=== PATIENT | male | born 1960 | race Two or more races ===

== ENCOUNTER → 2024-12-08 | Outpatient (CLI) | payer MEDICARE, MEDICAID, SELFPAY ==
--- NOTE | 2024-12-08 13:57 | XR_ITS ---
Examination: Knee, left , 3 views Technique: Knee AP, lateral, oblique 3 views Date and time of exam: December 08, 2024 1416 hours INDICATIONS: Worsening knee pain over the last 1 year FINDINGS: Moderate to advanced narrowing medial and patellofemoral joints No fracture or dislocation Moderate knee effusion Prominent osteopenia IMPRESSION: Moderate to advanced narrowing medial patellofemoral joints
== END | disposition home or self-care (01) ==
PROVIDERS: PCP Family Medicine; Referring Provider Family Medicine; Visit Provider Family Medicine
DX: M25.862 Other specified joint disorders, left knee (principal)
CPT/HCPCS: 73562

== ENCOUNTER 2025-02-10 07:56 | Outpatient (AMB) | payer MEDICARE, MEDICAID, SELFPAY ==
--- NOTE | 2025-02-10 08:05 | PD.ORTHCLVIS ---
Vital signs 02/10/25 08:06 Height 1.73 m Height Method Stated Weight 130.323 kg Weight Measurement Method Standing Scale BMI 43.7 BP 137/81 H Blood Pressure Source Automatic Cuff Blood Pressure Location Left Upper Arm Position Sitting Respiration 19 Pulse 99 Pulse Source Monitor Temp 96.9 F Temp Source Temporal Artery Scan Pulse Oximetry (%) 94 L Oxygen Delivery Method Room Air Med/Allergies Allergies & Medications Allergies No Known Allergies Allergy (Verified 02/10/25 08:09) Medication Reconciliation Amlodipine Besylate/Benazepril (Amlodipine-Benazepril 10/20 Mg) 1 cap PO DAILY ##0 07/20/09 [History Confirmed 02/10/25] Fa/Mv,Ca,Fe,Min/Lycopene/Lut (Centrum) 1 tab PO DAILY ##0 07/20/09 [History Confirmed 02/10/25] Pantoprazole Sodium 40 mg PO DAILY ##0 07/20/09 [History Confirmed 02/10/25] albuterol sulfate 4 mg tablet,extended release,12 hr 4 mg PO BID ##0 07/20/09 [History Confirmed 02/10/25] flunisolide 25 mcg (0.025 %) nasal spray 25 ml both nostrils ##0 07/20/09 [History Confirmed 02/10/25] Amitriptyline Hcl * (ELAVIL *) 25 mg PO HS #0 tabs 05/08/14 [History Confirmed 02/10/25] Diphenoxylate Hcl/Atrop Sulf * (LOMOTIL *) 1 tab PO TID PRN DIARRHEA #0 tabs 05/08/14 [History Confirmed 02/10/25] Glyburide/Metformin * (GLUCOVANCE 5/500 *) 1 tab PO BIDAC #0 tabs 05/08/14 [History Confirmed 02/10/25] HYDROCODONE BIT/ACETAMINOPHEN (HYDROCODON-ACETAMINOPHN 10-300) 1 tab PO BID ##0 05/08/14 [History Confirmed 02/10/25] Multivitamins With Minerals * (A THRU Z ADVANCED FORMULA *) 1 tab PO QDAY #0 tabs 05/08/14 [History Confirmed 02/10/25] Sulfamethoxazole/Trimethoprim DS * (BACTRIM DS *) 1 tab PO BID #0 tabs 05/08/14 [History Confirmed 02/10/25] Zolpidem Tartrate (Zolpidem 10mg) 10 mg PO HS #0 tabs 05/08/14 [History Confirmed 02/10/25] diclofenac sodium 75 mg tablet,delayed release 75 mg PO TIDWM ##0 05/08/14 [History Confirmed 02/10/25] dutasteride 0.5 mg capsule (Avodart) 0.5 mg PO QDAY #0 caps 05/08/14 [History Confirmed 02/10/25] dutasteride 0.5 mg capsule (Avodart) 0.5 mg PO QDAY #0 caps 05/08/14 [History Confirmed 02/10/25] fexofenadine 180 mg tablet (Giselle Allergy) 180 mg PO QDAY #0 tabs 05/08/14 [History Confirmed 02/10/25] gabapentin 300 mg capsule 300 mg PO TID #0 caps 05/08/14 [History Confirmed 02/10/25] glucosamine sulfate 2KCl 1,000 mg tablet (Glucosamine Relief) 500 mg PO ##0 05/08/14 [History Confirmed 02/10/25] meclizine 25 mg tablet (Antivert) 25 mg PO TID PRN DIZZINESS #0 tabs 05/08/14 [History Confirmed 02/10/25] misoprostol 200 mcg tablet (Cytotec) 200 mcg PO BID #0 tabs 05/08/14 [History Confirmed 02/10/25] montelukast 10 mg tablet (Singulair) 10 mg PO HS #0 tabs 05/08/14 [History Confirmed 02/10/25] morphine 60 mg tablet,extended release (MS Contin) 60 mg PO BID #0 tabs 05/08/14 [History Confirmed 02/10/25] pioglitazone 30 mg tablet (Actos) 30 mg PO QDAY #0 tabs 05/08/14 [History Confirmed 02/10/25] prochlorperazine maleate 10 mg tablet 10 mg PO TID #0 tabs 05/08/14 [History Confirmed 02/10/25] ranitidine HCl 150 mg tablet (Zantac) 150 mg PO QPM #0 tabs 05/08/14 [History Confirmed 02/10/25] tolterodine 2 mg capsule,extended release 24 hr (Detrol LA) 2 mg PO QDAY ##0 06/13/14 [History Confirmed 02/10/25] LIPASE/PROTEASE/AMYLASE (PANCREAZE 10,500 UNIT CHRIS ALVAREZ) 1 cap PO TIDWM Gastrointestinal Issues ##90 05/10/14 [Rx Confirmed 02/10/25] dicyclomine 20 mg tablet 20 mg PO TID #20 tabs 05/29/23 [Rx Confirmed 02/10/25] Exam Exam Patient is in no acute distress and is cooperative with the examination today. Breathing is nonlabored. In no respiratory distress. Bilateral extremities were evaluated and demonstrates sensation intact to light touch. Palpable pedal pulses are present. No significant edema is present. Bilateral hips were examined. The patient has no pain with log roll of the hips. Internal rotation to 30 degrees and external rotation to 30 degrees is painless. Negative FADIR. The left knee was examined. The left knee is in varus alignment. Range of motion from 0-115 degrees. Knee is stable to varus and valgus as well as AP translation with <5mm. Patient has a negative McMurrays. There is no pain with patellofemoral compression and no crepitus noted. The knee is tender to palpation medially. The right knee was also examined. The right knee is in varus alignment. Range of motion from 0-120 degrees. Knee is stable to varus and valgus as well as AP translation with <5mm. Patient has a negative McMurrays. There is no pain with patellofemoral compression and no crepitus noted. The knee is tender to palpation medially. X-rays demonstrate significant joint space narrowing. I have a nonweightbearing view of the left knee. Assessment and Plan Problem List (1) Arthritis of left knee: Status: Acute Plan: Patient is a 64-year-old male with left knee arthritis and morbid obesity on chronic opioids. He is on MS Contin at a very high dose and takes it 5 times a day. I discussed with him that we have several problems. First, his current weight, surgical options are not possible given the high risk of medical complications. We discussed this with him. He is not interested in losing weight. Furthermore, we discussed that he would likely need to wean the opioid medication as he has had a extremely high dose which makes it very difficult to control pain and puts him at high risk for complications during surgery. He also reports that he cannot wean the medication and has no interest in this. I discussed with him the only options are nonoperative treatment. I also discussed the right heel weightbearing x-rays to better evaluate the arthritis. He is not interested in seeing us again. Unfortunately, he is not optimized medically for surgery and has no interest in being optimized. He does not want to wean his pain medication which is an extremely high dose for his back, and has no interest in losing weight. He is welcome to seek another opinion if he would like Office Procedures GNS Level of Care Nursing/Assessment Patient Status: Initial/New Patient Nursing Assessment/Reassesment: Medication Reconciliation, Update PMH in EMR and Vital Signs Coordination of Care: Complex Care and Chronic Disease 1-5, Education Complex Pt/Fam, Consent,records obtained, informed consent, 1 Ins Authorization, Lab and Imaging orders, Results/Orders obtained and Staff clarify orders Special Needs: Language special needs New Patient Charge New Patient Point Assignment: 1124 New Patient Point Charge: DEAN FOR STUDENT AFFAIRS Level 4 ([id number]) MA Intake Visit Data Collection New Patient or Established: New Patient (never been to [facility]) Reason for Visit:: LEFT KNEE PAIN Seen by Clinical Staff ONLY (RN/MA): No Biomedical Manager Required: Yes PCP or OBGYN visit in last 3 months: Yes Hx Now: No Do You Feel Safe at Home: Yes Authorities Contacted: N/A Questionairres Past Medical History Past Medical History Have you ever been diagnosed with any of the following: Cardiology Problems Hypertension: Yes Respiratory Problems Asthma: No Genital/Urinary Problems Renal Disease: No Endocrine Problems Diabetes Mellitus Type 2: Yes (GANUVIA) Blood Problems Sickle Cell Disease: No Psychologic Problems Depression: Yes Subjective Visit Visit for: new patient and knee (LEFT) Immunization / Flu Flu Vaccine in the Last 12 Months: No Flu Vaccine Exclusion Criteria: Refused by Patient History of Present Illness Chief complaint: bl knee pain Date of injury / onset of symptoms: 01/2024 Patient is a 65 yo male on chronic opioids for back pain with a BMI of 0Vitals 44 with left knee pain. He is on MS Contin the chronic opioids for his back. He also has a BMI of 44. We discussed that he cannot lose weight and does not think that he can wean off the medication. Uses a cane. He has tried injections over a year ago Personal History Occupation: RETIRED Pain Pain level (0-10): 6 Pain duration: CONSTANT Pain location: inside (medial) and anterior Pain quality: dull and aching Pain timing: night, increases with activity and stairs Associated signs & symptoms: weakness and stiffness Ambulatory data Ambulatory device: cane Treatments Number of previous injections: 2 Improvement with previous injections: No Improvement with PT: No Improvement with NSAIDS: no Review of Systems Review of Systems: All systems negative unless otherwise noted in HPI.
[2025-02-10 08:06] VITALS: BP 137/81; PULSE 99; RESP 19; TEMP 36.1; O2SAT 94; BMI 43.7
== END 2025-02-10 08:23 | disposition home or self-care (01) ==
LOC: HODSRG 07:56
PROVIDERS: PCP Family Medicine; Referring Provider Family Medicine; Supervising Provider Orthopaedic Surgery Adult Reconstructive Orthopaedic Surgery; Visit Provider Orthopaedic Surgery Adult Reconstructive Orthopaedic Surgery
DX: M17.12 Unilateral primary osteoarthritis, left knee (principal); F32.A Depression, unspecified; E11.9 Type 2 diabetes mellitus without complications; I10 Essential (primary) hypertension; E66.01 Morbid (severe) obesity due to excess calories; Z68.41 Body mass index [BMI] 40.0-44.9, adult
CPT/HCPCS: 99204; G0463

== ENCOUNTER → 2025-03-03 | Outpatient (CLI) | payer MEDICARE, MEDICAID, SELFPAY ==
[2025-03-03 10:03] LABS: Alanine Aminotransferase 17 U/L (10-49); Albumin, Serum 3.8 gm/dL (3.4-4.8); Alkaline Phosphatase 105 U/L (46-116); Anion Gap 7 (7-16); Aspartate Amino Transferase 16 U/L (0-34); BUN/Creatinine Ratio 11 Ratio (12-20); Bilirubin,Direct 0.3 mg/dL (0.0-0.3); Bilirubin,Total 0.7 mg/dL (0.3-1.2); Blood Urea Nitrogen 9 mg/dL (9-23); Calcium 9.1 mg/dL (8.3-10.6); Carbon Dioxide 29.3 mMol/L (20.0-31.0); Cardiac Risk Estimate 3.7 RATIO (4.0-6.7); Chloride 103 mMol/L (98-107); Cholesterol 110 mg/dL (132-200); Creatinine (Component) 0.8 mg/dL (0.6-1.3); Glucose 263 mg/dL (74-106); HDL Cholesterol 30 mg/dL (40-60); LDL Cholesterol,Calculated 55 mg/dL (0-130); Osmolality,Calculated 285 (275-295); Potassium 3.8 mMol/L (3.4-5.1); Sodium 139 mMol/L (136-145); Total Protein 6.8 gm/dL (5.7-8.2); Triglycerides 127 mg/dL (30-150); eGFR > 60 See Note
[2025-03-03 10:07] LABS: Basophils % (Auto) 0 % (0-2.5); Eosinophils # (Auto) 0.2 Thou/mm3 (0.0-0.5); Eosinophils % (Auto) 3 % (0-10); Hematocrit 40.7 % (41.0-53.0); Immature Granulocytes % (Auto) 0 % (0-0); Immature Granulocytes Auto 0.02 Thou/mm3 (0.00-0.00); Lymphocytes # (Auto) 2.7 Thou/mm3 (1.0-4.8); Lymphocytes % (Auto) 36 % (10-50); Mean Corpuscular HGB Conc 31.9 g/dl (31.0-37.0); Mean Corpuscular Hemoglobin 29.9 pg (25.0-35.0); Mean Corpuscular Volume 94 fL (80-100); Monocytes # (Auto) 0.7 Thou/mm3 (0.0-0.8); Monocytes % (Auto) 9 % (0-12); Neutrophils % (Auto) 52 % (37-80); Nucleated Red Blood Cell % 0 /100 WBC (0); Platelet Count 273 Thou/mm3 (140-440); RDW Standard Deviation 46.9 fL (35.1-43.9); Red Blood Count 4.35 Miln/mm3 (4.50-5.90); White Blood Count 7.6 Thou/mm3 (3.8-10.6)
[2025-03-03 10:09] LABS: Glucose Estimated Average 260 mg/dL (80-131); Hemoglobin A1C 10.7 % Hgb (4.8-6.0)
[2025-03-03 10:16] LABS: Creatinine MALB Rnd Ur > 245 mg/dL (30-125); Microalbumin Creat Ratio 8 mg/gCrea (<30); Microalbumin, Random Urine 21 mg/L (0-300)
== END | disposition home or self-care (01) ==
LOC: COPL 08:14
PROVIDERS: PCP Family Medicine; Referring Provider Family Medicine; Visit Provider Family Medicine
DX: E11.9 Type 2 diabetes mellitus without complications (principal); I10 Essential (primary) hypertension
CPT/HCPCS: 36415; 80048; 80061; 80076; 82043; 82570; 83036; 85025

== ENCOUNTER 2025-06-05 21:35 | Emergency (ER) | payer MEDICAID, SELFPAY ==
[2025-06-05 22:12] VITALS: BP 129/79; PULSE 67; RESP 18; TEMP 37.2; O2SAT 96
--- NOTE | 2025-06-05 22:21 | XR_ITS ---
Examination: PA chest single view TECHNIQUE: Upright PA chest single view. Date and time: June 05, 2025 10:32 PM INDICATIONS: Chest pain shortness of breath beginning 3 days ago. FINDINGS: Normal heart size. Lungs are clear. Moderate osteopenia. IMPRESSION: No active disease.
--- NOTE | 2025-06-05 22:21 | EKG_ITS ---
[facility] (Formerly [facility]) Test Date: 2025-06-05 Pat Name: RANDY THOMPSON Department: Room: - Gender: Male Insurance Collector: : 1960 Requested By: Wilber Hill Order Number: [id number] Reading MD: Wilber Hill Measurements Intervals [place] Rate: 69 P: 52 ME: 172 QRS: 37 QRSD: 91 T: 42 QT: 376 QTc: 404 Interpretive Statements SINUS RHYTHM No previous ECG available for comparison /store/S0/[id number].pdf
[2025-06-05] MEDS: ONDANSETRON ODT 4 MG TABRAP PO (22:47)
[2025-06-05 23:00] LABS: Basophils # (Auto) 0.1 Thou/mm3 (0.0-0.2); Basophils % (Auto) 0 % (0-2.5); Eosinophils # (Auto) 0.2 Thou/mm3 (0.0-0.5); Eosinophils % (Auto) 2 % (0-10); Hematocrit 41.9 % (41.0-53.0); Hemoglobin 14.0 g/dL (13.5-16.0); Immature Granulocytes Auto 0.04 Thou/mm3 (0.00-0.00); Lymphocytes # (Auto) 3.7 Thou/mm3 (1.0-4.8); Lymphocytes % (Auto) 32 % (10-50); Mean Corpuscular HGB Conc 33.4 g/dl (31.0-37.0); Mean Corpuscular Hemoglobin 30.3 pg (25.0-35.0); Mean Corpuscular Volume 91 fL (80-100); Monocytes # (Auto) 0.8 Thou/mm3 (0.0-0.8); Monocytes % (Auto) 7 % (0-12); Neutrophils # (Auto) 6.8 Thou/mm3 (1.8-7.7); Neutrophils % (Auto) 59 % (37-80); Nucleated Red Blood Cell # 0.00 Thou/mm3 (0.00-0.00); Nucleated Red Blood Cell % 0 /100 WBC (0); Platelet Count 246 Thou/mm3 (140-440); RDW Standard Deviation 42.8 fL (35.1-43.9); Red Blood Count 4.62 Miln/mm3 (4.50-5.90); White Blood Count 11.5 Thou/mm3 (3.8-10.6)
[2025-06-05] MEDS: FAMOTIDINE 20 MG TABLET 40 MG PO (23:14)
[2025-06-05] MEDS: MG HYD/AL HYD/SIME (Maalox Reg) SUSP 30 ML UDC PO (23:15)
--- NOTE | 2025-06-05 23:23 | EDNOTE_ITS ---
<Statement entered by Mary Ann Villanueva MD - 06/08/25 18:56> As co-signing physician, I was present and available for consult prn. I concur with the plan and care as documented by the midlevel provider. ED Recheck Abnl Lab Rx-RME/HPI General Chief Complaint: General Adult/Misc Complain Stated Complaint: WHOLE BODY CRAMPING X 3 AYS Time Seen by Provider: 06/05/25 22:21 Arrival date/time: 06/05/25 21:35 65M with history of DM, GERD, pancreatitis, and psych presents to ED with 3 days of full body cramping/numbness. There is also some epigastric pain that radiates to throat. Patient states he went to PCP yesterday and was told it was esophagitis or something similar. Limitations: no limitations Related Data Home Medications ?Medication ?Instructions ?Recorded ?Confirmed Amlodipine Besylate/Benazepril 1 cap PO DAILY ##0 /04/0302/10/25 (Amlodipine-Benazepril 10/20 Mg) Fa/Mv,Ca,Fe,Min/Lycopene/Lut 1 tab PO DAILY ##0 02/10/25 (Centrum) Pantoprazole Sodium 40 mg PO DAILY ##0 07/20/09 02/10/25 albuterol sulfate 4 mg 4 mg PO BID ##0 07/20/09 tablet,extended release,12 hr flunisolide 25 mcg (0.025 %) nasal 25 ml both nostrils ##0 07/20/09 02/10/25 spray Amitriptyline Hcl * (ELAVIL *) 25 mg PO HS #0 tabs 02/10/25 Diphenoxylate Hcl/Atrop Sulf * 1 tab PO TID PRN DIARRH EA #0 tabs 05/08/14 02/10/25 (LOMOTIL *) Glyburide/Metformin * (GLUCOVANCE 1 tab PO BIDAC #0 ta bs 05/08/14 02/10/25 5/500 *) HYDROCODONE BIT/ACETAMINOPHEN 1 tab PO BID ##0 4 02/10/25 (HYDROCODON-ACETAMINOPHN 10-300) Multivitamins With Minerals * (A 1 tab PO QDAY #0 tabs 05/08/14 02/10/25 THRU Z ADVANCED FORMULA *) Sulfamethoxazole/Trimethoprim DS * 1 tab PO BID #0 tab s 05/08/14 02/10/25 (BACTRIM DS *) Zolpidem Tartrate (Zolpidem 10mg) 10 mg PO HS #0 tabs 05/08/14 02/10/25 diclofenac sodium 75 mg 75 mg PO TIDWM ##0 05/08/14 02/10/25 tablet,delayed release dutasteride 0.5 mg capsule 0.5 mg PO QDAY #0 caps 04/2602/10/25 (Avodart) dutasteride 0.5 mg capsule 0.5 mg PO QDAY #0 caps 04/2602/10/25 (Avodart) fexofenadine 180 mg tablet 180 mg PO QDAY #0 tabs 04/2602/10/25 (Giselle Allergy) gabapentin 300 mg capsule 300 mg PO TID #0 caps 02/10/25 glucosamine sulfate 2KCl 1,000 mg 500 mg PO ##0 02/10/25 tablet (Glucosamine Relief) meclizine 25 mg tablet (Antivert) 25 mg PO TID PRN DIZ ZINESS #0 tabs 05/08/14 02/10/25 misoprostol 200 mcg tablet 200 mcg PO BID #0 tabs 04/2602/10/25 (Cytotec) montelukast 10 mg tablet 10 mg PO HS #0 tabs 05/08/14 02/10/25 (Singulair) morphine 60 mg tablet,extended 60 mg PO BID #0 tabs 02/10/25 release (MS Contin) pioglitazone 30 mg tablet (Actos) 30 mg PO QDAY #0 tab s 05/08/14 02/10/25 prochlorperazine maleate 10 mg 10 mg PO TID #0 tabs 02/10/25 tablet ranitidine HCl 150 mg tablet 150 mg PO QPM #0 tabs 02/10/25 (Zantac) tolterodine 2 mg capsule,extended 2 mg PO QDAY ##0 02/10/25 release 24 hr (Detrol LA) Previous Rx's ?Medication ?Instructions ?Recorded LIPASE/PROTEASE/AMYLASE (PANCREAZE 1 cap PO TIDWM Patience rointestinal 05/10/14 10,500 UNIT CAP ) Issues ##90 dicyclomine 20 mg tablet 20 mg PO TID #20 tabs Allergies Allergy/AdvReac Type Severity Reaction Status Date / Time No Known Allergies Allergy Verified 06/05/25 21:36 Review of Systems Review of Systems Systems Reviewed: All systems reviewed, normal except as documented Constitutional Constitutional: Reports system reviewed and no additional complaints, except as documented, Denies fever(s) and Denies headache(s) ENT Ears, Nose, Mouth, and Throat: Denies disequilibrium and Denies headache(s) Cardiovascular Cardiovascular: Reports system reviewed and no additional complaints, except as documented, Denies chest pain and Denies dyspnea Respiratory Respiratory: Reports system reviewed and no additional complaints, except as documented, Denies cough and Denies dyspnea Gastrointestinal Gastrointestinal: Reports system reviewed and no additional complaints, except as documented, Reports as per HPI, Reports abdominal pain, Reports nausea and Reports vomiting Musculoskeletal Musculoskeletal: Reports as per HPI, Reports muscle cramps and Reports numbness Integumentary/Breasts Skin/Breast: Reports as per HPI Neurologic Neurologic: Reports system reviewed and no additional complaints, except as documented, Denies confusion, Denies disequilibrium, Denies headache(s) and Reports numbness Psychiatric Psychiatric: Denies confusion Past Medical History Past Medical History CARDIAC: Positive Hypertension; Negative Cardiac Disorders RESPIRATORY: Negative Asthma GENITOURINARY: Negative Renal Disease ENDOCRINE: Positive Diabetes Mellitus Type 2 (GANUVIA) HEMATOLOGIC: Negative Sickle Cell Disease PSYCHO/SOCIAL: Positive Depression Social History SMOKING STATUS: Never smoker ED Exam General Limitations: Present no limitations General appearance: Present alert and in no apparent distress Head Head exam: Present atraumatic Eye Eye exam: Present normal appearance, PERRL and EOMI ENT ENT exam: Present normal exam, normal oropharynx and mucous membranes moist Neck Neck exam: Present normal inspection, full ROM and trachea midline Chest Chest inspection: Present normal inspection and symmetric chest wall rise Respiratory Respiratory exam: Present normal lung sounds bilaterally Cardiovascular Cardiovascular exam: Present regular rate, normal rhythm and normal heart sounds Abdominal Exam Abdominal exam: Present soft and normal bowel sounds Abdominal tenderness: Present epigastrium Extremities Exam Extremities exam: Present normal inspection and full ROM Back Exam Back exam: Present normal inspection and full ROM Neurological Exam Neurological exam: Present alert, oriented X3 and CN II-XII intact Psychiatric Psychiatric exam: Present normal affect and normal mood Skin Skin exam: Present warm, dry, intact and normal color Course Quality Measures none Orders Category Date Time Status EKG (ED ONLY) *Do not use* NOW Care 06/05/25 22:21 Completed EKG (ED Only) Stat Exams 06/05/25 22:21 Draft XR chest 1V portable Stat Exams 06/05/25 22:21 Completed Alcohol, Blood Medical Stat Lab 06/05/25 22:45 Completed CBC Stat Lab 06/05/25 22:45 Completed Comprehensive Metabolic Panel Stat Lab 06/05/25 22:45 Completed Drug Screen,Urine Stat Lab 06/05/25 22:50 Completed Lipase Stat Lab 06/05/25 22:45 Completed Magnesium Stat Lab 06/05/25 22:45 Completed Troponin I Stat Lab 06/05/25 22:45 Completed Urinalysis Stat Lab 06/05/25 22:50 Completed Diazepam [Valium] Med 06/05/25 23:27 Discontinued 5 mg PO X1 ONE Famotidine [Pepcid] Med 06/05/25 22:21 Discontinued 40 mg PO X1 ONE Ondansetron Odt [Zofran Odt] Med 06/05/25 22:21 Discontinued 4 mg PO X1 ONE mg Hyd/Al Hyd/Rusty Susp [Maalox Susp] Med 06/05/25 22:21 Discontinued 30 ml PO X1 ONE Vital Signs Vital signs: Vital Signs Temperature 98.9 F 06/05/25 22:12 Pulse Rate 67 06/05/25 22:12 Respiratory Rate 18 06/05/25 22:12 Blood Pressure 129/79 06/05/25 22:12 Pulse Oximetry (%) 96 06/05/25 22:12 Oxygen Delivery Method Room Air 06/05/25 22:12 O2 at 96% on RA and WNLs Recheck / Abnormal Lab / Rx MDM Narrative MDM Narrative:: 65M with history of DM, GERD, pancreatitis, and psych presents to ED with 3 days of full body cramping/numbness. There is also some epigastric pain that radiates to throat. Patient states he went to PCP yesterday and was told it was esophagitis or something similar. Physical exam reveals minimal epigastric tenderness. Normal lungs and WOB. No obvious cramping. Gait normal. Patient is afebrile, calm, and alert. EKG is NSR. CXR normal. Normal trop. CMP, mag, and CBC unremarkable. GI cocktail relieved ab pain. Patient data External records reviewed:: [facility] previous records Clinical information provided by:: patient Social determinants that could affect healthcare access:: mental health Patient has the following chronic illnesses:: DM, GERD, pancreatitis, and psych How is presenting disease/condition affected by chronic disease/condition?: exacerbated by Evaluation data The following diagnostics were reviewed and interpreted by me:: lab results, radiology exam(s) and EKG tracing(s) Lab and/or radiology exams considered but not ordered:: ordered Interpretation Summary: above Medications / Prescriptions Medications or Prescriptions considered but not ordered:: ordered Medication administrations:: Medication Administration History Discontinued Medications Al Hydrox/Mg Hydrox/Simethicone (Mg Hyd/Al Hyd/Rusty (Maalox Reg) Susp 30 Ml Udc) 30 ml PO X1 ONE Stop: 06/05/25 22:22 Last Admin: 06/05/25 23:15 Dose: 30 ml Documented By: Diazepam (Diazepam 5 Mg Tablet) 5 mg PO X1 ONE Stop: 06/05/25 23:28 Last Admin: 06/05/25 23:44 Dose: 5 mg Documented By: Famotidine (Famotidine 20 Mg Tablet) 40 mg PO X1 ONE Stop: 06/05/25 22:22 Last Admin: 06/05/25 23:14 Dose: 40 mg Documented By: Ondansetron HCl (Ondansetron Odt 4 Mg Tabrap) 4 mg PO X1 ONE; Protocol Stop: 06/05/25 22:22 Last Admin: 06/05/25 22:47 Dose: 4 mg Documented By: above Consultations Consultation(s) initiated? (list below): No Diagnosis Recheck Differential Diagnosis: encounter for medication refill, encounter for wound recheck, encounter for recheck of burn, encounter for removal of sutures, warfarin-induced coagulopathy and other (GERD and paresthesia ) Most likely diagnosis given after review of the tests above:: GERD and paresthesia Admission Indicated Admission indicated?: not indicated Admission Request Was there a request for admission?: No Disposition Plan Disposition Plan: Discharge Discharge Attestation Discharge Attestation: The patient and all family members were given an opportunity to ask questions and understood the discharge instructions. Discharge instructions specifically effects, indications for sooner follow up or return to the emergency department, and the expected course of current diagnosis. Patient condition: Stable Discharge Plan Plan Patient Disposition: HOME (Self Care) Discharge Disposition comment: Stable Prescriptions/Referrals Prescriptions/Med Rec: No Action Amlodipine Besylate/Benazepril (Amlodipine-Benazepril 10/20 Mg) 1 CAP capsule 1 cap PO DAILY Qty: 0 Patient Comments: TAKE ONE TABLET BY MOUTH DAILY flunisolide 25 ML spray,non-aerosol 25 ml both nostrils Qty: 0 Patient Comments: TAKE ONE PRAY IN NARE DAILY albuterol sulfate 4 MG tablet extended release 12 hr 4 mg PO BID Qty: 0 Patient Comments: TAKE ONE TABLET BY MOUTH TWICE DAILY Fa/Mv,Ca,Fe,Min/Lycopene/Lut (Centrum) 1 TAB tablet 1 tab PO DAILY Qty: 0 Patient Comments: TAKE ONE TABLET BY MOUTH DAILY Pantoprazole Sodium 40 MG TABLET.DR 40 mg PO DAILY Qty: 0 Patient Comments: TAKE ONE TABLET BY MOUTH DAILY Amitriptyline Hcl * (ELAVIL *) 25 MG tablet 25 mg PO HS Qty: 0 tolterodine [Detrol LA] 2 MG capsule,extended release 24hr 2 mg PO QDAY Qty: 0 fexofenadine [Giselle Allergy] 180 MG tablet 180 mg PO QDAY Qty: 0 prochlorperazine maleate 10 MG tablet 10 mg PO TID Qty: 0 meclizine [Antivert] 25 MG tablet 25 mg PO TID PRN (Reason: DIZZINESS) Qty: 0 morphine [MS Contin] 60 MG tablet extended release 60 mg PO BID Qty: 0 ranitidine HCl [Zantac] 150 MG tablet 150 mg PO QPM Qty: 0 misoprostol [Cytotec] 200 MCG tablet 200 mcg PO BID Qty: 0 gabapentin 300 MG capsule 300 mg PO TID Qty: 0 diclofenac sodium 75 MG tablet,delayed release (DR/EC) 75 mg PO TIDWM Qty: 0 montelukast [Singulair] 10 MG tablet 10 mg PO HS Qty: 0 pioglitazone [Actos] 30 MG tablet 30 mg PO QDAY Qty: 0 Patient Comments: FOR DIABETES dutasteride [Avodart] 0.5 MG capsule 0.5 mg PO QDAY Qty: 0 dutasteride [Avodart] 0.5 MG capsule 0.5 mg PO QDAY Qty: 0 glucosamine sulfate 2KCl [Glucosamine Relief] 1,000 MG tablet 500 mg PO Qty: 0 Diphenoxylate Hcl/Atrop Sulf * (LOMOTIL *) 1 TAB tablet 1 tab PO TID PRN (Reason: DIARRHEA) Qty: 0 Glyburide/Metformin * (GLUCOVANCE 5/500 *) 1 TAB tablet 1 tab PO BIDAC Qty: 0 HYDROCODONE BIT/ACETAMINOPHEN (HYDROCODON-ACETAMINOPHN 10-300) 1 EACH tablet 1 tab PO BID Qty: 0 Multivitamins With Minerals * (A THRU Z ADVANCED FORMULA *) 1 EACH tablet 1 tab PO QDAY Qty: 0 Sulfamethoxazole/Trimethoprim DS * (BACTRIM DS *) 1 TAB tablet 1 tab PO BID Qty: 0 Zolpidem Tartrate (Zolpidem 10mg) 10 MG tablet 10 mg PO HS Qty: 0 LIPASE/PROTEASE/AMYLASE (PANCREAZE 10,[address]) 1 EACH CAPSULE.DR 1 cap PO TIDWM Qty: 90 0RF dicyclomine 20 mg tablet 20 mg PO TID Qty: 20 0RF Referrals: Khris Bah MD [Primary Care Provider] - In 1 week Problem List Clinical Impression: GERD (gastroesophageal reflux disease), Paresthesia Patient/Caregiver Discharge Instructions Education Materials: ED GERD (Adult), ED Paraesthesias Additional Instructions: Please follow-up with PCP within 24-48 hours and return immediately if symptoms worsen. Can try OTC TUMs and Pepcid. Print Language: Pashto Stand Alone Forms: Patient Portal Info Letter PA/LINE SERVER Supervising Physician PA/LINE SERVER Supervising Physician: Dr. Villanueva
[2025-06-05 23:24] LABS: Alanine Aminotransferase 26 U/L (10-49); Albumin, Serum 4.4 gm/dL (3.4-4.8); Albumin/Globulin Ratio 1.3 (1.2-2.2); Alcohol, Blood Medical < 3.0 mg/dL (0-10.0); Alkaline Phosphatase 133 U/L (46-116); Anion Gap 10 (7-16); Aspartate Amino Transferase 19 U/L (0-34); BUN/Creatinine Ratio 11 Ratio (12-20); Bilirubin,Total 0.5 mg/dL (0.3-1.2); Blood Urea Nitrogen 9 mg/dL (9-23); Calcium 9.6 mg/dL (8.3-10.6); Calcium (Corrected) 9.6 mg/dL (8.5-10.1); Carbon Dioxide 29.2 mMol/L (20.0-31.0); Chloride 101 mMol/L (98-107); Creatinine (Component) 0.8 mg/dL (0.6-1.3); Globulin 3.4 gm/dL (2.3-3.5); Glucose 205 mg/dL (74-106); Lipase 77 U/L (12-53); Magnesium 1.9 mg/dL (1.6-2.6); Osmolality,Calculated 284 (275-295); Potassium 4.0 mMol/L (3.4-5.1); Sodium 140 mMol/L (136-145); Total Protein 7.8 gm/dL (5.7-8.2); Troponin I < 0.002 ng/mL (0.0-0.045); eGFR > 60 See Note
[2025-06-05 23:34] LABS: Collection Type, Urine Clean Catch
[2025-06-05] MEDS: DIAZEPAM 5 MG TABLET PO (23:44)
[2025-06-05 23:47] LABS: Bacteria,Urine Rare; Bilirubin,Urine Negative (Negative); Blood,Urine Negative (Negative); Clarity,Urine Clear (Clear/Hazy); Color,Urine Yellow (Lt Yel-Yel); Glucose, Urine 3+ (Negative); Ketones,Urine Negative (Negative); Leukocyte Esterase,Urine Negative (Negative); Nitrite,Urine Negative (Negative); PH,Urine 5.5 (5.0-7.0); Protein,Urine 1+ (Neg - Trace); RBC,Urine 2 /hpf (0-3); Specific Gravity,Urine 1.031 (1.001-1.035); Squamous Epithelial Cell,Urine 1 /hpf (0-5); Urobilinogen,Urine Negative mg/dL (0.0-1.0); WBC,Urine 3 /hpf (0-5)
[2025-06-06 00:12] LABS: Amphetamine/Methamp Scrn,U Negative (Negative); Barbiturate Screen,Urine Negative (Negative); Benzodiazepines Screen,Urine Negative (Negative); Benzoylecgonine Screen, Ur Negative (Negative); Fentanyl Screen,Urine Negative (Negative); Opiate Screen,Urine Positive (Negative); THC Screen,Urine Negative (Negative)
[2025-06-06 00:43] VITALS: BP 138/82; PULSE 68; RESP 18; TEMP 37; O2SAT 96
== END 2025-06-06 01:03 | disposition home or self-care (01) ==
PROVIDERS: Physician Assistant; Emergency Provider Emergency Medicine; PCP Family Medicine
DX: K21.00 Gastro-esophageal reflux disease with esophagitis, without bleeding (principal); R20.2 Paresthesia of skin; R07.9 Chest pain, unspecified; R06.02 Shortness of breath; I10 Essential (primary) hypertension
CPT/HCPCS: 36415; 71045; 80053; 80307; 80320; 81001; 83690; 83735; 84484; 85025; 93005; 99284; Q0162; A9270; G0480

== ENCOUNTER → 2025-07-02 | Outpatient (CLI) | payer MEDICARE, MEDICAID, SELFPAY ==
[2025-07-02 08:36] LABS: Basophils # (Auto) 0.1 Thou/mm3 (0.0-0.2); Basophils % (Auto) 1 % (0-2.5); Eosinophils # (Auto) 0.1 Thou/mm3 (0.0-0.5); Eosinophils % (Auto) 1 % (0-10); Hematocrit 43.4 % (41.0-53.0); Hemoglobin 14.1 g/dL (13.5-16.0); Immature Granulocytes Auto 0.05 Thou/mm3 (0.00-0.00); Lymphocytes # (Auto) 3.4 Thou/mm3 (1.0-4.8); Lymphocytes % (Auto) 31 % (10-50); Mean Corpuscular HGB Conc 32.5 g/dl (31.0-37.0); Mean Corpuscular Hemoglobin 30.7 pg (25.0-35.0); Mean Corpuscular Volume 95 fL (80-100); Monocytes # (Auto) 0.8 Thou/mm3 (0.0-0.8); Monocytes % (Auto) 7 % (0-12); Neutrophils # (Auto) 6.5 Thou/mm3 (1.8-7.7); Neutrophils % (Auto) 60 % (37-80); Nucleated Red Blood Cell # 0.00 Thou/mm3 (0.00-0.00); Nucleated Red Blood Cell % 0 /100 WBC (0); Platelet Count 266 Thou/mm3 (140-440); RDW Standard Deviation 44.6 fL (35.1-43.9); Red Blood Count 4.59 Miln/mm3 (4.50-5.90); White Blood Count 10.9 Thou/mm3 (3.8-10.6)
[2025-07-02 08:46] LABS: Glucose Estimated Average 280 mg/dL (80-131); Hemoglobin A1C 11.4 % Hgb (4.8-6.0)
[2025-07-02 08:53] LABS: Vitamin B12 356 pg/mL (211-911); Vitamin D 25 Hydroxy Total 28.5 ng/mL (7.3-40.2)
[2025-07-02 08:58] LABS: Alanine Aminotransferase 16 U/L (10-49); Albumin, Serum 3.9 gm/dL (3.4-4.8); Alkaline Phosphatase 110 U/L (46-116); Anion Gap 10 (7-16); Aspartate Amino Transferase 16 U/L (0-34); BUN/Creatinine Ratio 8 Ratio (12-20); Bilirubin,Direct 0.3 mg/dL (0.0-0.3); Bilirubin,Total 0.7 mg/dL (0.3-1.2); Blood Urea Nitrogen 7 mg/dL (9-23); Calcium 9.3 mg/dL (8.3-10.6); Carbon Dioxide 28.1 mMol/L (20.0-31.0); Cardiac Risk Estimate 4.3 RATIO (4.0-6.7); Chloride 103 mMol/L (98-107); Cholesterol 125 mg/dL (132-200); Creatinine (Component) 0.9 mg/dL (0.6-1.3); Glucose 127 mg/dL (74-106); HDL Cholesterol 29 mg/dL (40-60); LDL Cholesterol,Calculated 73 mg/dL (0-130); Osmolality,Calculated 281 (275-295); Potassium 4.3 mMol/L (3.4-5.1); Sodium 141 mMol/L (136-145); Total Protein 7.0 gm/dL (5.7-8.2); Triglycerides 117 mg/dL (30-150); eGFR > 60 See Note
[2025-07-02 09:01] LABS: Iron 82 mcg/dL (65-175)
[2025-07-02 09:44] LABS: Microalbumin, Random Urine 8 mg/L (0-300)
[2025-07-02 09:57] LABS: Creatinine MALB Rnd Ur 237 mg/dL (30-125); Microalbumin Creat Ratio 3 mg/gCrea (<30)
[2025-07-09 06:26] LABS: Vitamin B1 (Thiamine)* 10 nmol/L (8-30)
== END | disposition home or self-care (01) ==
PROVIDERS: PCP Family Medicine; Referring Provider Family Medicine; Visit Provider Family Medicine
DX: E11.42 Type 2 diabetes mellitus with diabetic polyneuropathy (principal); D50.9 Iron deficiency anemia, unspecified; E78.1 Pure hyperglyceridemia
CPT/HCPCS: 36415; 80048; 80061; 80076; 82043; 82306; 82570; 82607; 83036; 83540; 84425; 85025

== ENCOUNTER → 2025-09-03 | Outpatient (CLI) | payer MEDICARE, MEDICAID, SELFPAY ==
[2025-09-09 06:32] LABS: Fecal Globin Result NOT DETECTED (NOT DETECTED)
== END | disposition home or self-care (01) ==
LOC: SLDO 15:41
PROVIDERS: PCP Family Medicine; Referring Provider Family Medicine; Visit Provider Family Medicine
DX: Z12.11 Encounter for screening for malignant neoplasm of colon (principal); Z12.12 Encounter for screening for malignant neoplasm of rectum
CPT/HCPCS: 82274; G0328

== ENCOUNTER → 2025-10-02 | Outpatient (CLI) | payer MEDICARE, MEDICAID, SELFPAY ==
[2025-10-02 08:40] LABS: Glucose Estimated Average 272 mg/dL (80-131); Hemoglobin A1C 11.1 % Hgb (4.8-6.0)
[2025-10-02 08:42] LABS: Anion Gap 6 (7-16); BUN/Creatinine Ratio 13 Ratio (12-20); Blood Urea Nitrogen 10 mg/dL (9-23); Calcium 8.9 mg/dL (8.3-10.6); Carbon Dioxide 28.8 mMol/L (20.0-31.0); Chloride 103 mMol/L (98-107); Creatinine (Component) 0.8 mg/dL (0.6-1.3); Glucose 261 mg/dL (74-106); Osmolality,Calculated 283 (275-295); Potassium 4.2 mMol/L (3.4-5.1); Sodium 138 mMol/L (136-145); eGFR > 60 See Note
== END | disposition home or self-care (01) ==
LOC: COPL 07:12
PROVIDERS: PCP Family Medicine; Referring Provider Family Medicine; Visit Provider Family Medicine
DX: E11.65 Type 2 diabetes mellitus with hyperglycemia (principal)
CPT/HCPCS: 36415; 80048; 83036